=== PATIENT | female | born 1955 | race Caucasian/White ===

== ENCOUNTER 2020-01-20 13:01 | Emergency (ER) | payer OTHER ==
[~2020-01-20] VITALS: Ht 162.6 cm; Wt 117.9 kg
[2020-01-20] MEDS ORDERED: ONDANSETRON HCL INJ 2MG/ML 2ML 2 MG/ML VIAL IV STA (13:26)
[2020-01-20] MEDS ORDERED: HYDROCODONE/APAP 7.5MG-325MG 1 EA TAB PO ONE (13:30)
[2020-01-20] MEDS ORDERED: DEXAMETHASONE SOD PHOS 10 MG/1 ML VIAL IV ONE (13:30)
[2020-01-20 13:47] LABS: BASOPHILS % 0.4 % (0.0-1.0); EOSINOPHILS # (AUTO) 0.1 (0.0-0.4); EOSINOPHILS % 2.5 % (0.0-6.0); HEMOGLOBIN 13.2 g/dL (12.0-16.0); LYMPHOCYTES # (AUTO) 2.2 (1.0-3.2); LYMPHOCYTES % 38.9 % (18.0-39.1); MEAN CORPUSCULAR HEMOGLOBIN 29.3 pg (28-32); MEAN CORPUSCULAR HGB CONC 32.2 g/dL (31-35); MEAN CORPUSCULAR VOLUME 91.1 fL (81-99); MONOCYTES # (AUTO) 0.5 (0.2-0.8); MONOCYTES % 9.5 % (4.4-11.3); NEUTROPHILS # (AUTO) 2.7 (2.1-6.9); NEUTROPHILS % 48.5 % (38.7-80.0); PLATELET COUNT 203 x10e3/uL (140-360); RED CELL DISTRIBUTION WIDTH 13.2 % (11.7-14.4)
[2020-01-20 13:58] LABS: INR 0.91; PARTIAL THROMBOPLASTIN TIME 32.3 seconds (23.8-35.5); PROTHROMBIN TIME 12.7 seconds (11.9-14.5)
[2020-01-20 14:11] LABS: ALANINE AMINOTRANSFERASE 18 IU/L (0-55); ALBUMIN 3.5 g/dL (3.5-5.0); ALKALINE PHOSPHATASE 97 IU/L (40-150); ANION GAP 12.3 mmol/L (8-16); BLOOD UREA NITROGEN 17 mg/dL (7-26); BUN/CREATININE RATIO 21 (6-25); CALCIUM 8.9 mg/dL (8.4-10.2); CARBON DIOXIDE 25 mmol/L (22-29); CHLORIDE 110 mmol/L (98-107); CREATINE KINASE 48 IU/L (29-168); EST GLOMERULAR FILTRATION RATE > 60 ML/MIN (60-); GLUCOSE 95 mg/dL (74-118); POTASSIUM 4.3 mmol/L (3.5-5.1); SODIUM 143 mmol/L (136-145)
--- NOTE | 2020-01-20 14:27 | Diagnostic Imaging Report ---
EXAMINATION: CHEST SINGLE (NOT PORTABLE) INDICATION: Neck pain, arm numbness COMPARISON: None FINDINGS: LINES/TUBES:None LUNGS:The lungs are well-inflated. No focal consolidation or pulmonary edema. PLEURA:No pleural effusion or pneumothorax. MEDIASTINUM:The cardiomediastinal silhouette appears normal in size and shape. Atherosclerotic calcifications of the thoracic aorta. BONES/SOFT TISSUES:No acute osseous injury. ABDOMEN:No free air under the diaphragm. IMPRESSION: No focal pneumonia or pulmonary edema. Signed by: Severo Torres MD on 01/20/2020 2:24 PM
--- NOTE | 2020-01-20 14:29 | Diagnostic Imaging Report ---
EXAMINATION: CERVICAL SPINE 4 OR 5 VIEWS INDICATION: Neck pain COMPARISON: None FINDINGS: AP, lateral, oblique, odontoid images of the cervical spine were obtained. Alignment is anatomic. No acute fracture or dislocation. Mild multilevel degenerative changes with disc space narrowing and osteophyte formation. Prevertebral soft tissues are normal in thickness. IMPRESSION: No acute osseous injury. Multilevel degenerative changes. Signed by: Severo Torres MD on 01/20/2020 2:26 PM
--- NOTE | 2020-01-20 15:14 | Emergency Department Note ---
History of Present Illnes History of Present Illness Chief Complaint: General Medicine Complaints History of Present Illness This is a 64 year old female pt states left side neck pain onset 3 days ago. pain in arm itself and numbness complete to thumb and 2 fingers. pt denies chest pain or sob. no nausea. +radial pulse. cap refill <2 seconds. Historian: Patient, Family Member Arrival Mode: Car Vaccine Manager Required: No Onset (how long ago): day(s) (3) Location: NECK PAIN TO LEFT ARM Quality: PAIN/NUMBNESS Radiation: Reports extremity Severity: moderate Onset quality: gradual Timing of current episode: constant Progression: unchanged Chronicity: new Context: Denies recent illness Relieving factors: none Exacerbating factors: none Associated symptoms: Reports denies other symptoms Treatments prior to arrival: none Past Medical/Family History Physician Review I have reviewed the patient's past medical and family history. Any updates have been documented here. Past Medical History Recent Fever: No Clinical Suspicion of Infectio: No New/Unexplained Change in Ment: No Past Medical History: Hypertension, Hypothyroidism Other Medical History: morbid obesity Past Surgical History: Cholecysctectomy, Appendectomy, Hysterectomy Other Surgery: abd adhensions Social History Smoking Cessation: Former smoker Counseling Performed: No Alcohol Use: None Any Illegal Drug Use: No Physically hurt or threatened: No Family History Family history of heart diseas: No Other Any Pre-Existing Lines (PICC,: No Review of Systems Review of Systems Constitutional: Reports no symptoms EENTM: Reports no symptoms Cardiovascular: Reports no symptoms Respiratory: Reports no symptoms Gastrointestinal: Reports no symptoms Genitourinary: Reports no symptoms Musculoskeletal: Reports as per HPI, Reports neck pain Integumentary: Reports no symptoms Neurological: Reports no symptoms Psychological: Reports no symptoms Endocrine: Reports no symptoms Hematological/Lymphatic: Reports no symptoms Physical Exam Related Data Allergies: Coded Allergies: No Known Allergies (Unverified , 01/20/20) Triage Vital Signs Vital Signs Date Time Temp Pulse Resp B/P (MAP) Pulse Ox O2 Delivery O2 Flow Rate FiO2 01/20/20 13:19 97.5 76 18 176/81 99 Room Air Vital signs reviewed: Yes Physical Exam CONSTITUTIONAL Constitutional: Present well-developed, Present well-nourished HENT HENT: Present normocephalic, Present atraumatic, Present oropharynx clear/moist, Present nose normal HENT L/R: Present left ext ear normal, Present right ext ear normal EYES Eyes: Reports PERRL, Reports conjunctivae normal NECK Neck: Present ROM normal, Present supple, Present other (NEGATIVE SPURLING'S, GOOD ROM); Absent cervical adenopathy PULMONARY Pulmonary: Present effort normal, Present breath sounds normal CARDIOVASCULAR Cardiovascular: Present regular rhythm, Present heart sounds normal, Present capillary refill normal, Present normal rate GASTROINTESTINAL Abdominal: Present soft, Present nontender, Present bowel sounds normal GENITOURINARY Genitourinary: Present exam deferred SKIN Skin: Present warm, Present dry MUSCULOSKELETAL Musculoskeletal: Present ROM normal NEUROLOGICAL Neurological: Present alert, Present oriented x 3, Present no gross motor or sensory deficits, Present sensory deficit (SLIGHT DECREASED LIGHT TOUCH TO LEFT THUMB, INDEX, AND LONG FINGER, NO MOTOR DEFICITS, DTR'S NORMAL); Absent weakness PSYCHOLOGICAL Psychological: Present mood/affect normal, Present judgement normal Results Laboratory Result Diagram: 01/20/20 1323 01/20/20 1323 Laboratory Laboratory Tests Test 01/20/20 13:23 White Blood Count 5.60 x10e3/uL (4.8-10.8) Red Blood Count 4.50 x10e6/uL (3.6-5.1) Hemoglobin 13.2 g/dL (12.0-16.0) Hematocrit 41.0 % (34.2-44.1) Mean Corpuscular Volume 91.1 fL (81-99) Mean Corpuscular Hemoglobin 29.3 pg (28-32) Mean Corpuscular Hemoglobin Concent 32.2 g/dL (31-35) Red Cell Distribution Width 13.2 % (11.7-14.4) Platelet Count 203 x10e3/uL (140-360) Neutrophils (%) (Auto) 48.5 % (38.7-80.0) Lymphocytes (%) (Auto) 38.9 % (18.0-39.1) Monocytes (%) (Auto) 9.5 % (4.4-11.3) Eosinophils (%) (Auto) 2.5 % (0.0-6.0) Basophils (%) (Auto) 0.4 % (0.0-1.0) Neutrophils # (Auto) 2.7 (2.1-6.9) Lymphocytes # (Auto) 2.2 (1.0-3.2) Monocytes # (Auto) 0.5 (0.2-0.8) Eosinophils # (Auto) 0.1 (0.0-0.4) Basophils # (Auto) 0.0 (0.0-0.1) Absolute Immature Granulocyte (auto 0.01 x10e3/uL (0-0.1) Prothrombin Time 12.7 seconds (11.9-14.5) Prothromb Time International Ratio 0.91 Activated Partial Thromboplast Time 32.3 seconds (23.8-35.5) Sodium Level 143 mmol/L (136-145) Potassium Level 4.3 mmol/L (3.5-5.1) Chloride Level 110 mmol/L (98-107) Carbon Dioxide Level 25 mmol/L (22-29) Anion Gap 12.3 mmol/L (8-16) Blood Urea Nitrogen 17 mg/dL (7-26) Creatinine 0.80 mg/dL (0.57-1.11) Estimat Glomerular Filtration Rate > 60 ML/MIN (60-) BUN/Creatinine Ratio 21 (6-25) Glucose Level 95 mg/dL (74-118) Calcium Level 8.9 mg/dL (8.4-10.2) Total Bilirubin 0.3 mg/dL (0.2-1.2) Aspartate Amino Transf (AST/SGOT) 16 IU/L (5-34) Alanine Aminotransferase (ALT/SGPT) 18 IU/L (0-55) Alkaline Phosphatase 97 IU/L (40-150) Creatine Kinase 48 IU/L (29-168) Creatine Kinase MB 0.70 ng/mL (0-5.0) Troponin I 0.004 ng/mL (0-0.300) Total Protein 6.9 g/dL (6.5-8.1) Albumin 3.5 g/dL (3.5-5.0) Globulin 3.4 g/dL (2.3-3.5) Albumin/Globulin Ratio 1.0 (0.8-2.0) Lab results reviewed: Yes Imaging Imaging results reviewed: Yes Procedures 12 Lead ECG Interpretation ECG Interpretation : ECG: ECG 1 Vaccine Manager: Interpreted by ED physician Date: Jan 20, 2020 Time: 13:18 Rhythm: sinus rhythm Rate: normal (69) QRS axis: normal ST segments normal: Yes T waves normal: Yes Clinical Impression: normal ECG Assessment & Plan Medical Decision Making MDM LEFT ARM PAIN, NECK PAIN WITH LEFT THUMB/INDEX/LONG FINGER NUMBNESS - LIKELY CERVICAL RADICULOPATHY - CHECK CBC, CHEM, CARDIACS, ECG, CXR, CERVICAL SPINE XRAYS - R/O STEMI/NSTEMI, ELECTROLYTE ABNL, CERVICAL PATHOLOGY/FX/DJD. WILL GIVE IV DECADRON, PAIN MEDS Reassessment Reassessment DC WITH TRAMADOL, MEDROL DOSE PACK. F/U PCP, NEURO Assessment & Plan Final Impression: (1) Cervical radiculopathy (2) DJD (degenerative joint disease) Depart Disposition: HOME, SELF-CARE Last Vital Signs Date Time Temp Pulse Resp B/P (MAP) Pulse Ox O2 Delivery O2 Flow Rate FiO2 01/20/20 13:19 97.5 76 18 176/81 99 Room Air Medications in the ED Ondansetron HCl 4 mg ONCE STAT IV Last administered on 01/20/20 14:23; Admin Dose 4 MG; Start 01/20/20 at 13:26; Stop 01/20/20 at 13:56; Status DC Dexamethasone Sodium Phosphate 10 mg ONCE ONCE IV Last administered on 01/20/20at 14:23; Admin Dose 10 MG; Start 01/20/20 at 13:30; Stop 01/20/20 at 13:56; Status DC Acetaminophen/ Hydrocodone Bitart 1 ea NOW ONCE PO Last administered on 01/20/20at 14:23; Admin Dose 1 EA; Start 01/20/20 at 13:30; Stop 01/20/20 at 13:56; Status DC ELSA OVALLES MD Jan 20, 2020 15:14
--- OUTSIDE RECORDS SUMMARY | 2020-01-23 19:15 | XMS REPORT | Continuity of Care Document ---
Author Author [facility] t Organization [facility] Address [address] [place] [address] Phone Unavailable Care Team Providers Care Computer Numerical Control Grinder Name Role Phone MD NILO CHANDRA PCP Bello OVALLES Attphys Unavailable Payers Payer Name Policy Type Policy Number Effective Date Expiration Date Iraj Conway [id number] 2019 00:00:00 [facility] Problems Condition Name Condition Details Condition Category Status Onset Date Resolution Date Last Treatment Date Treating Clinician Comments Source Cervical radiculopathy Problem Active [facility] Osteoarthritis Problem Active [facility] Allergies, Adverse Reactions, Alerts Allergy Name Allergy Type Status Severity Reaction(s) Onset Date Inacti ve Date Treating Clinician Comments Source No Known Allergies DA Active U 2019-03-17 00:00:00 [facility] No Known Contrast Allergies DA Active U 2007-11-21 00:00: 00 [facility] No Known Drug Allergies DA Active U 2007-11-21 00:00:00 [facility] No Known Food Allergies DA Active U 2007-11-21 00:00:00 [facility] No Known Other Allergies DA Active U 2007-11-21 00:00:00 [facility] Social History Social Habit Start Date Stop Date Quantity Comments Source Sex Assigned At 1955 00:00:00 1955 00:00:00 Female [facility] Medications This patient has no known medications. Vital Signs Vital Name Observation Time Observation Value Comments Source Weight 2020-01-20 13:19:00 260 [lb_av] [facility] BMI (Body Mass Index) 2020-01-20 13:19:00 44.6 kg/m2 [facility] Procedures Procedure Date / Time Performed Performing Clinician Sour e X-ray of chest, single view 2020-01-20 00:00:00 [facility] Plan of Care Planned Activity Planned Date Details Comments Source Instructions Cervical Radiculopathy [facility] Encounters Start Date/Time End Date/Time Encounter Type Admission Type Att[facility] Facility Care Department Encounter ID Source 2020-01-20 13:25:00 2020-01-20 15:31:00 Departed Emergency Room 1 ELSA OVALLES [facility] [id number] [facility] Results Test Description Test Time Test Comments Results Result Comments Source CHEST SINGLE (NOT PORTABLE) 2020-01-20 14:24:00 [place] [address] Patient Name: RAQUEL WAKEFIELD MR #: [id number] : 1955 Age/Sex: 64/F Req #: [id number] Adm Physician: Ordered by: ELSA OVALLES MD Report #: [id number] Location: ER Room/Bed: Procedure: [id number] DX/CHEST SINGLE (NOT PORTABLE) Exam Date: 01/20/20 Exam Time: 1358 REPORT STATUS: Signed EXAMINATION: CHEST SINGLE (NOT PORTABLE) INDICATION: Neck pain, arm numbness COMPARISON: None FINDINGS: LINES/TUBES:None LUNGS:The lungs are well-inflated. No focal consolidation or pulmonary edema. PLEURA:No pleural effusion or pneumothorax. MEDIASTINUM:The cardiomediastinal silhouette appears normal in size and shape. Atherosclerotic calcifications of the thoracic aorta. BONES/SOFT TISSUES:No acute osseous injury. ABDOMEN:No free air under the diaphragm. IMPRESSION: No focal pneumonia or pulmonary edema. Signed by: Brijesh Caruso MD on 01/20/2020 2:24 PM Dictated By: BRIJESH CARUSO MD 23 Transcribed By: JEFERSON on 01/20/201423 COPY TO: ELSA OVALLES MD CERVICAL SPINE 4 OR 5 VIEWS 2020-01-20 14:24:00 [place] [address] Patient Name: RAQUEL WAKEFIELD MR #: [id number] : 1955 Age/Sex: 64/F Req #: [id number] Adm Physician: Ordered by: ELSA OVALLES MD Report #: [id number] Location: ER Room/Bed: Procedure: [id number] DX/CERVICAL SPINE 4 OR 5 VIEWS Exam Date: 01/20/20 Exam Time: 1358 REPORT STATUS: Signed EXAMINATION: CERVICAL SPINE 4 OR 5 VIEWS INDICATION: Neck pain COMPARISON: None FINDINGS: AP, lateral, oblique, odontoid images of the cervical spine were obtained. Alignment is anatomic. No acute fracture or dislocation. Mild mul tilevel degenerative changes with disc space narrowing and osteophyte formation. Prevertebral soft tissues are normal in thickness. IMPRESSION: No acute osseous injury. Multilevel degenerative changes. Signed by: Brijesh Caruso MD on 01/20/2020 2:26 PM Dictated By: BRIJESH CARUSO MD 1426 Transcribed By: JEFERSON on 01/20/20 1426 COPY TO: ELSA OVALLES MD Blood leukocytes automated count (number/volume) 2020-01-20 13:23:00 Test Item White Blood Count (test code = 6690-2) 5.60 4.8-10.8 [facility] count (number/volume)2020-01-20 13:23:00* Test Item Value Reference Range Interpretation Comments Red Blood Count (test code = 789-8) 4.50 3.6-5.1 [facility] hemoglobin measurement (moles/volume)2020-01-20 13:23:00* Test Item Value Reference Range Interpretation Comments Hemoglobin (test code = 74172-3) 13.2 12.0-16.0 [facility] CenterAutomated blood hematocrit (volume fraction)2020-01-20 13:23:00* Test Item Value Reference Range Interpretation Comments Hematocrit (test code = 4544-3) 41.0 34.2-44.1 [facility] CenterAutomated erythrocyte mean corpuscular mgkbbw1741-37-23 13:23:00* Test Item Value Reference Range Interpretation Comments Mean Corpuscular Volume (test code = 787-2) 91.1 81-99 [facility] CenterAutomated erythrocyte mean corpuscular hemoglobin (mass per erythrocyte)2020-01-20 13:23:00* Test Item Value Reference Range Interpretation Comments Mean Corpuscular Hemoglobin (test code = 785-6) 29.3 28-32 [facility] CenterAutomated erythrocyte mean corpuscular hemoglobin concentration measurement (mass/volume)2020-01-20 13:23:00* Test Item Value Reference Range Interpretation Comments Mean Corpuscular Hemoglobin Concent (test code = 786-4) 32.2 31-35 [facility] CenterRDW [id number]-[id number] 13:23:00* Test Item Value Reference Range Interpretation Comments Red Cell Distribution Width (test code = 76187-9) 13.2 11.7 -14.4 [facility] CenterAutomated blood platelet count (count/volume)2020-01-20 13:23:00* Test Item Value Reference Range Interpretation Comments Platelet Count (test code = 777-3) 203 140-360 [facility] CenterAutomated blood segmented neutrophil count as percentage of total mlxnxdqzfu6629-05-59 13:23:00* Test Item Value Reference Range Interpretation Comments Neutrophils (%) (Auto) (test code = 91020-8) 48.5 38.7-80.0 [facility] CenterAutomated blood lymphocyte count as percentage ot total sfhblfecox2830-87-71 13:23:00* Test Item Value Reference Range Interpretation Comments Lymphocytes (%) (Auto) (test code = 736-9) 38.9 18.0-39.1 [facility] CenterAutomated blood monocyte count as percentage of total evgzabnreo7298-20-99 13:23:00* Test Item Value Reference Range Interpretation Comments Monocytes (%) (Auto) (test code = 5905-5) 9.5 4.4-11.3 [facility] CenterAutomated blood eosinophil count as percentage of total fibranccvg8173-16-02 13:23:00* Test Item Value Reference Range Interpretation Comments Eosinophils (%) (Auto) (test code = 713-8) 2.5 0.0-6.0 [facility] CenterAutomated blood basophil count as percentage of total hxdrypuxgg0925-37-06 13:23:00* Test Item Value Reference Range Interpretation Comments Basophils (%) (Auto) (test code = 706-2) 0.4 0.0-1.0 [facility] CenterFluoroscopic procedure less than one hour zltoothi0505-44-13 13:23:00* Test Item Value Reference Range Interpretation Comments IM GRANULOCYTES % (test code = IM GRANULOCYTES %) 0.2 0.0- 1.0 [facility] CenterAutomated blood neutrophil count 2020-01-20 13:23:00* Test Item Value Reference Range Interpretation Comments Neutrophils # (Auto) (test code = 751-8) 2.7 2.1-6.9 [facility] CenterBlood lymphocytes count (number/volume) 2020-01-20 13:23:00* Test Item Value Reference Range Interpretation Comments Lymphocytes # (Auto) (test code = 34104-0) 2.2 1.0-3.2 [facility] CenterBlood monocytes automated count (number/volume)2020-01-20 13:23:00* Test Item Value Reference Range Interpretation Comments Monocytes # (Auto) (test code = 742-7) 0.5 0.2-0.8 [facility] CenterAutomated blood eosinophil count 2020-01-20 13:23:00* Test Item Value Reference Range Interpretation Comments Eosinophils # (Auto) (test code = 711-2) 0.1 0.0-0.4 [facility] CenterAutomated blood basophil count (count/volume)2020-01-20 13:23:00* Test Item Value Reference Range Interpretation Comments Basophils # (Auto) (test code = 704-7) 0.0 0.0-0.1 [facility] CenterFluoroscopic procedure less than one hour mwbsdbhs5846-66-81 13:23:00* Test Item Value Reference Range Interpretation Comments Absolute Immature Granulocyte (auto (saroj t code = Absolute Immature Granulocyte (auto) 0.01 0-0.1 [facility] CenterProthrombin time (PT) in platelet poor plasma by coagulation lazvz7930-88-10 13:23:00* Test Item Value Reference Range Interpretation Comments Prothrombin Time (test code = 5902-2) 12.7 11.9-14.5 [facility] CenterINR in Platelet poor plasma by Coagulation wgbgs0041-30-41 13:23:00* Test Item Value Reference Range Interpretation Comments Prothromb Time International Ratio (test code = 6301-6) 0.91 Oral Anticoagulant Therapy INR Values:1. Low Intensity Therapy 1.5 - 2.02 . Moderate Intensity Therapy 2.0 - 3.03. High Intensity Therapy(1) 2.5 - 3. 54. High Intensity Therapy(2) 3.0 - 4.05. Panic Value INR > 5.0 [facility] CenterActivated partial thromboplastin time (aPTT) in platelet poor plasma by coagulation nmvsh9381-89-26 13:23:00* Test Item Value Reference Range Interpretation Comments Activated Partial Thromboplast Time (test code = 64460-7) 32.3 23.8-35.5 [facility] plasma sodium measurement (moles/volume)2020-01-20 13:23:00* Test Item Value Reference Range Interpretation Comments Sodium Level (test code = 2951-2) 143 136-145 [facility] or plasma potassium measurement (moles/volume)2020-01-20 13:23:00* Test Item Value Reference Range Interpretation Comments Potassium Level (test code = 2823-3) 4.3 3.5-5.1 [facility] or plasma chloride measurement (moles/volume)2020-01-20 13:23:00* Test Item Value Reference Range Interpretation Comments Chloride Level (test code = 2075-0) 110 98-107 [facility] or plasma carbon dioxide, total measurement (moles/volume)2020-01-20 13:23:00* Test Item Value Reference Range Interpretation Comments Carbon Dioxide Level (test code = 2028-9) 25 22-29 [facility] or plasma anion pnu5630-08-56 13:23:00* Test Item Value Reference Range Interpretation Comments Anion Gap (test code = 16109-3) 12.3 8-16 [facility] or plasma urea nitrogen measurement (mass/volume)2020-01-20 13:23:00* Test Item Value Reference Range Interpretation Comments Blood Urea Nitrogen (test code = 3094-0) 17 7-26 [facility] or plasma creatinine measurement (mass/volume)2020-01-20 13:23:00* Test Item Value Reference Range Interpretation Comments Creatinine (test code = 2160-0) 0.80 0.57-1.11 [facility] or plasma urea nitrogen/creatinine mass wwwme9340-78-00 13:23:00* Test Item Value Reference Range Interpretation Comments BUN/Creatinine Ratio (test code = 3097-3) 21 6-25 [facility] CenterEstimated glomerular filtration rate (GFR) kcrviwrdtzxde6075-51-84 13:23:00* Test Item Value Reference Range Interpretation Comments Estimat Glomerular Filtration Rate (test code = 369943635) > 60 >60 Ranges were taken from the National Kidney Disease Education Program and the [facility] literature.Reference ranges:60 or greater: Lxpxbd77-31 ( for 3 consecutive months): Chronic kidney disease 15 or less: Kidney failureCook Children's Medical CenterGlucose yhdsplynzng3640-64-87 13:23:00* Test Item Value Reference Range Interpretation Comments Glucose Level (test code = TTF3301) 95 74-118 [facility] or plasma calcium measurement (mass/volume)2020-01-20 13:23:00* Test Item Value Reference Range Interpretation Comments Calcium Level (test code = 56149-0) 8.9 8.4-10.2 [facility] or plasma total bilirubin measurement (mass/volume)2020-01-20 13:23:00* Test Item Value Reference Range Interpretation Comments Total Bilirubin (test code = 1975-2) 0.3 0.2-1.2 [facility] CenterFluoroscopic procedure less than one hour izlemlpc4107-56-15 13:23:00* Test Item Value Reference Range Interpretation Comments Aspartate Amino Transf (AST/SGOT) (test code = Aspartate Amino Transf (AST/SGOT)) 16 5-34 [facility] or plasma alanine aminotransferase measurement (enzymatic activity/volume)2020-01-20 13:23:00* Test Item Value Reference Range Interpretation Comments Alanine Aminotransferase (ALT/SGPT) (test code = 1742-6) 18 0-55 [facility] Systemer[facility] or plasma protein measurement (mass/volume)2020-01-20 13:23:00* Test Item Value Reference Range Interpretation Comments Total Protein (test code = 2885-2) 6.9 6.5-8.1 [facility] or plasma albumin measurement (mass/volume)2020-01-20 13:23:00* Test Item Value Reference Range Interpretation Comments Albumin (test code = 1751-7) 3.5 3.5-5.0 [facility] CenterPlasma globulin measurement (mass/volume) 2020-01-20 13:23:00* Test Item Value Reference Range Interpretation Comments Globulin (test code = 94812-0) 3.4 2.3-3.5 [facility]er[facility] or plasma albumin/globulin mass xdiek7595-58-32 13:23:00* Test Item Value Reference Range Interpretation Comments Albumin/Globulin Ratio (test code = 1759-0) 1.0 0.8-2.0 [facility]er[facility] or plasma alkaline phosphatase measurement (enzymatic activity/volume)2020-01-20 13:23:00* Test Item Value Reference Range Interpretation Comments Alkaline Phosphatase (test code = 6768-6) 97 40-150 [facility]er[facility] or plasma creatine kinase measurement (enzymatic activity/volume)2020-01-20 13:23:00* Test Item Value Reference Range Interpretation Comments Creatine Kinase (test code = 2157-6) 48 29-168 [facility] Systemerum or plasma creatine kinase MB measurement (mass/volume)2020-01-20 13:23:00* Test Item Value Reference Range Interpretation Comments Creatine Kinase MB (test code = 33177-0) 0.70 0-5.0 [facility] CenterTroponin I measurement by highly sensitive enzyme edqcbczyjhm2478-56-83 13:23:00* Test Item Value Reference Range Interpretation Comments Troponin I (test code = 49181-3) 0.004 0-0.300 [facility]- CT ABD PELVIS W/[id number] 20:28:00 Name: RAQUEL WAKEFIELD [facility] : 1955 Age/S: 63 / F [address] [facility] [id number] Loc: [place] [address] Phys: Gonzalez Angelo MD Acct: [id number] Di s Date: Status: REG ER PHONE #: [phone] Exam Date: 03/17/20192015 FAX #: Reason: LUQ ttp EXAMS: CPT CODE: [id number] CT ABD PELVIS W/CONT 74422 EXAM: CT of the abdomen a nd pelvis with contrast; INFORMATION: Left upper quadrant pain; TECHNIQUE: CT dose reduction protocol; 5 mm cut s were obtained through the abdomen and pelvis during and after intravenou s infusion of contrast material. FINDINGS: Liver, spleen and pancreas are of normal size and shape; they show homogeneous enhancement without focal lesions. Status post cholecystectomy; no biliary dilatation . Adrenal glands and kidneys are unremarkable; no evidence of adenop athy; No evidence of appendicitis or other acute bowel abnormalities. No pelvic mass lesions. No abnormal fluid collections. Extensive c alcified plaques in the abdominal aorta and the iliofemoral arteries. Scans through the lung bases are clear. IMPRESSION: No evidence of acute abdominal or pelvic abnormalities. at 2027 Reported and si gned by: Saad Sauceda M.D. CC: Sara Angelo MD Technologist:Elizabeth Thompson RT(R); ÁNGEL Rojo CTDI: D LP: Trnscb Date/Time: 03/17/2019 (2027) [email or web address] Orig Print D/T: S: 03/17/2019 (2030) PAGE 1 Signed R eport URINALYSIS [id number] 14:20:00* Test Item Value Reference Range Interpretation Comments UA COLOR (test code = COLU) Light-Yellow YELLOW UA APPEARANCE (test code = APPU) CLEAR CLEAR UA GLUCOSE DIPSTICK (test code = DGLUU) NEGATIVE mg/dL NEGATIVE UA BILIRUBIN DIPSTICK (test code = BILU) NEGATIVE mg/dL NEGATIVE UA KETONE DIPSTICK (test code = KETU) NEGATIVE mg/dL NEGATIVE UA SPECIFIC GRAVITY (test code = SGU) 1.008 1.001-1.035 UA BLOOD DIPSTICK (test code = TERRY) Negative mg/dL NEGATIVE UA PH DIPSTICK (test code = JULIUS) 6.0 5.0-8.0 UA PROTEIN DIPSTICK (test code = PROU) NEGATIVE mg/dL NEGATIVE UA UROBILINIOGEN DIPSTICK (test code = URO) Normal mg/dL NEGATIVE UA NITRITE DIPSTICK (test code = MINGO) NEGATIVE NEGATIVE UA LEUKOCYTE ESTERASE W REFLEX (test code = LEUUR) NEGATIVE Lakesha/uL NEGATIVE UA WBC (test code = WBCU) 0-5 per HPF 0-5 UA RBC (test code = RBCU) 0-2 #/HPF 0-5 UA EPITHELIAL CELLS (test code = EPIU) FEW per HPF FEW UA BACTERIA (test code = BACU) FEW #/HPF NONE Urine Source? Clean Catch- XR CHEST 1 [id number] 13:59:00 FAX: Sara Blanco [phone] [place]: St: REG Name: RAQUEL BRAND [facility] : [birth year] Age/S: 63/F [address] [facility] Unit #: [id number] Loc: [place] [address] Phys: Sara Angelo Acct: [id number] Dis Date: Status: REG ER PHONE #: [phone] Exam Date: 03/17/2019 1342 FAX #: [phone] Reason: Abdominal Pain EXAMS: CPT CODE: [id number] XR CHEST 1 V 04414 REASON FOR EXAM: Abdominal Pain Exam Order Date: 03/17/2019 12:51 PM Ordering M .D.: Sara Angelo MD PROCEDURE: - XR CHEST 1 V COMPARISON: None FINDINGS: The lungs are clear. There i s no pleural effusion or pneumothorax. Pulmonary vascularity is within nor mal limits. Cardiomediastinal silhouette is normal in size for lawrence hnique. The mediastinal contours are within normal limits. D egenerative changes are present in the spine. The visualized upper abdomen is within normal limits. IMPRESSION: No acute cardiopulmonary process. at 1359 Reported and signed by: Saulo Rolon MD CC: Sara Angelo MD Technologist: Shameka Miles) [facility] Date/Time/By: 03/17/2019 (8477) : By: [email or web address] Orig Print D/T: S: (0984) PAGE 1 Signed Repo rt BASIC METABOLIC [id number] 13:41:00* Test Item Value Reference Range Interpretation Comments SODIUM (test code = NA) 141 mmol/L 136-145 N POTASSIUM (test code = K) 3.8 mmol/L 3.5-5.1 N CHLORIDE (test code = CL) 110.0 mmol/L 98-107 H CARBON DIOXIDE (test code = CO2) 24.0 mmol/L 21-32 N ANION GAP (test code = GAP) 10.8 10-20 N GLUCOSE (test code = GLU) 119 mg/dL 74-106 H BLOOD UREA NITROGEN (test code = BUN) 11 mg/dL 7-18 N GLOMERULAR FILTRATION RATE (test code = GFR) > 60 mL/min >=60 Estimated GFR by using Modified MDRD formula.Chronic kidney disease is defined as either kidney damageor GFR <60 mL/min/1.73 m2 for >3 months. CREATININE (test code = CREAT) 0.90 mg/dL 0.55-1.02 N Note change in reference range due to change in reagent. BUN/CREATININE RATIO (test code = BUN/CREA) 12.2 10-20 N CALCIUM (test code = CA) 8.9 mg/dL 8.5-10.1 N HEPATIC FUNCTION [id number] 13:41:00* Test Item Value Reference Range Interpretation Comments TOTAL PROTEIN (test code = PROT) 7.0 gram/dL 6.4-8.2 N ALBUMIN (test code = ALB) 3.6 g/dL 3.4-5.0 N GLOBULIN (test code = GLOB) 3.4 gram/dL 2.7-4.2 N ALBUMIN/GLOBULIN RATIO (test code = A/G) 1.1 0.75-1.50 N BILIRUBIN TOTAL (test code = BILT) 0.50 mg/dL 0.0-1.0 N BILIRUBIN DIRECT (test code = BILD) 0.09 mg/dL 0.0-0.20 N SGOT/AST (test code = AST) 18 IUnit/L 15-37 N SGPT/ALT (test code = ALT) 28 IUnit/L 12-78 N ALKALINE PHOSPHATASE TOTAL (test code = ALKP) 118 IUnit/L 45-117 H Note change in reference range due to change in reagent. [id number] 13:41:00* Test Item Value Reference Range Interpretation Comments LIPASE (test code = LIP) 60 U/L 73.0-393.0 L [id number] 13:41:00* Test Item Value Reference Range Interpretation Comments TROPONIN-I (test code = TROPI) <0.015 ng/mL 0-0.045 N BASIC METABOLIC [id number] 13:31:00* Test Item Value Reference Range Interpretation Comments SODIUM (test code = NA) 141 mmol/L 136-145 N POTASSIUM (test code = K) 3.8 mmol/L 3.5-5.1 N CHLORIDE (test code = CL) 110.0 mmol/L 98-107 H CARBON DIOXIDE (test code = CO2) mmol/L 21-32 ANION GAP (test code = GAP) 10-20 GLUCOSE (test code = GLU) mg/dL 74-106 BLOOD UREA NITROGEN (test code = BUN) mg/dL 7-18 GLOMERULAR FILTRATION RATE (test code = GFR) mL/min >=60 CREATININE (test code = CREAT) mg/dL 0.55-1.02 BUN/CREATININE RATIO (test code = BUN/CREA) 10-20 CALCIUM (test code = CA) mg/dL 8.5-10.1 HEPATIC FUNCTION [id number] 13:31:00* Test Item Value Reference Range Interpretation Comments TOTAL PROTEIN (test code = PROT) gram/dL 6.4-8.2 ALBUMIN (test code = ALB) g/dL 3.4-5.0 GLOBULIN (test code = GLOB) gram/dL 2.7-4.2 ALBUMIN/GLOBULIN RATIO (test code = A/G) 0.75-1.50 BILIRUBIN TOTAL (test code = BILT) mg/dL 0.0-1.0 BILIRUBIN DIRECT (test code = BILD) mg/dL 0.0-0.20 SGOT/AST (test code = AST) IUnit/L 15-37 SGPT/ALT (test code = ALT) IUnit/L 12-78 ALKALINE PHOSPHATASE TOTAL (test code = ALKP) IUnit/L 45-117 [id number] 13:31:00* Test Item Value Reference Range Interpretation Comments LIPASE (test code = LIP) U/L 73.0-393.0 [id number] 13:31:00* Test Item Value Reference Range Interpretation Comments TROPONIN-I (test code = TROPI) ng/mL 0-0.045 CBC W/O [id number] 13:21:00* Test Item Value Reference Range Interpretation Comments WHITE BLOOD CELL (test code = WBC) 5.9 K/mm3 4.5-12.5 N RED BLOOD CELL (test code = RBC) 4.57 mill/mm3 3.7-5.2 N HEMOGLOBIN (test code = HGB) 13.3 gram/dL 11.5-15.5 N HEMATOCRIT (test code = HCT) 41.1 % 36.0-46.0 N MEAN CELL VOLUME (test code = MCV) 89.9 fL 80-98 N MEAN CELL HGB (test code = MCH) 29.1 picogram 27.0-33.0 N MEAN CELL HGB CONCETRATION (test code = MCHC) 32.4 gram/dL 33.0-36. 0 L RED CELL DISTRIBUTION WIDTH (test code = RDW) 13.1 % 11.6-16. 2 N PLATELET COUNT (test code = PLT) 180 K/mm3 150-450 N MEAN PLATELET VOLUME (test code = MPV) 10.7 fL 6.7-11.0 N CBC W/O [id number] 13:17:00* Test Item Value Reference Range Interpretation Comments WHITE BLOOD CELL (test code = WBC) K/mm3 4.5-12.5 RED BLOOD CELL (test code = RBC) mill/mm3 3.7-5.2 HEMOGLOBIN (test code = HGB) 13.3 gram/dL 11.5-15.5 N HEMATOCRIT (test code = HCT) 41.1 % 36.0-46.0 N MEAN CELL VOLUME (test code = MCV) fL 80-98 MEAN CELL HGB (test code = MCH) picogram 27.0-33.0 MEAN CELL HGB CONCETRATION (test code = MCHC) gram/dL 33.0-36. 0 RED CELL DISTRIBUTION WIDTH (test code = RDW) % 11.6-16. 2 PLATELET COUNT (test code = PLT) K/mm3 150-450 MEAN PLATELET VOLUME (test code = MPV) fL 6.7-11.0
== END 2020-01-20 15:31 | disposition home or self-care (01) ==
LOC: ER 13:25
DX: M54.12 Radiculopathy, cervical region (principal); M47.892 Other spondylosis, cervical region
CPT/HCPCS: 36415; 71045; 72050; 80053; 82550; 82553; 84484; 85025; 85610; 85730; 93005; 99284; J2405

== ENCOUNTER → 2024-05-14 | Outpatient (REF) | payer MEDICARE | LOC: US 12:37 | PROVIDERS: ATTEND Nurse Practitioner Primary Care | DX: M75.22 Bicipital tendinitis, left shoulder (principal) | CPT/HCPCS: 76882 ==

== ENCOUNTER 2024-05-21 23:27 | Inpatient (IN) | payer MEDICARE ==
[~2024-05-21] VITALS: Ht 162.6 cm; Wt 117.9 kg
[2024-05-21 23:50] LABS: BASOPHILS % 0.6 % (0.0-1.0); EOSINOPHILS # (AUTO) 0.2 (0.0-0.4); EOSINOPHILS % 3.5 % (0.0-6.0); HEMATOCRIT 44.1 % (34.2-44.1); HEMOGLOBIN 13.8 g/dL (12.0-16.0); LYMPHOCYTES # (AUTO) 2.3 (1.0-3.2); LYMPHOCYTES % 32.9 % (18.0-39.1); MEAN CORPUSCULAR HEMOGLOBIN 29.5 pg (28-32); MEAN CORPUSCULAR HGB CONC 31.3 g/dL (31-35); MEAN CORPUSCULAR VOLUME 94.2 fL (81-99); MONOCYTES # (AUTO) 0.8 (0.2-0.8); MONOCYTES % 11.1 % (4.4-11.3); NEUTROPHILS # (AUTO) 3.6 (2.1-6.9); NEUTROPHILS % 51.8 % (38.7-80.0); PLATELET COUNT 187 x10e3/uL (140-360); RED BLOOD COUNT 4.68 x10e6/uL (3.6-5.1); RED CELL DISTRIBUTION WIDTH 13.3 % (11.7-14.4); WHITE BLOOD COUNT 6.91 x10e3/uL (4.8-10.8)
[2024-05-22] VITALS (38 sets, daily range): BP systolic 114–182; BP diastolic 63–98; PULSE 77–118; RESP 14–24; TEMP 98–100; O2SAT 92–99
[2024-05-22 00:23] LABS: ANION GAP 16.1 mmol/L (8-16); BILIRUBIN,TOTAL 0.4 mg/dL (0.2-1.2); CREATININE, SERUM 1.41 mg/dL (0.57-1.11); POTASSIUM 4.1 mmol/L (3.5-5.1); TOTAL PROTEIN 7.9 g/dL (6.5-8.1)
[2024-05-22 00:29] LABS: TROPONIN I 0.007 ng/mL (0-0.300)
[2024-05-22 00:36] LABS: STREPTOCOCCUS GRP A ANTIGEN NEGATIVE (NEGATIVE)
[2024-05-22 00:45] LABS: CORONAVIRUS COVID-19 AG NEGATIVE (NEGATIVE); INFLUENZA A AG NEGATIVE (NEGATIVE); INFLUENZA B AG NEGATIVE (NEGATIVE)
[2024-05-22] MEDS ORDERED: VENTOLIN HFA18 GM INH (01:05)
[2024-05-22] MEDS ORDERED: PREDNISONE20 MG PO (01:05)
[2024-05-22] MEDS ORDERED: AZITHROMYCIN250 MG PO (01:05)
[2024-05-22] MEDS: HYDRALAZINE HCL 20 MG/ML VIAL IV STA ×2 (01:22→02:20)
[2024-05-22] MEDS ORDERED: LABETALOL HCL 5 MG/ML 20ML VIAL IV STA (02:21)
[2024-05-22] MEDS ORDERED: ACETAMINOPHEN 325 MG TAB PO STA (02:24)
[2024-05-22] MEDS: ACETAMINOPHEN 325 MG TAB PO ONE (02:55)
[2024-05-22] MEDS: IBUPROFEN 600 MG TAB PO STA (02:56)
[2024-05-22] MEDS ORDERED: SODIUM CHLORIDE 0.9% 1000ML 1,000 ML ONE (03:01)
[2024-05-22] MEDS: SODIUM CHLORIDE 0.9% 1000ML 1,000 ML IV STA (03:03)
[2024-05-22] MEDS ORDERED: NICARDIPINE 20MG/200ML PREMIX 200 ML ONE (03:31)
[2024-05-22] MEDS: NICARDIPINE 20MG/200ML PREMIX 200 ML IV SCH (03:36)
[2024-05-22] MEDS ORDERED: AZITHROMYCIN 250 MG TAB PO SCH (04:15)
[2024-05-22] MEDS ORDERED: ACETAMINOPHEN 325 MG TAB PO PRN (06:30)
[2024-05-22] MEDS: LEVOTHYROXINE SODIUM 75 MCG TAB PO SCH (07:48)
[2024-05-22 07:51] LABS: TROPONIN I 0.04 ng/mL (0-0.300)
[2024-05-22] MEDS: MONTELUKAST SODIUM 10 MG TAB PO SCH (08:37)
[2024-05-22] MEDS: OMEPRAZOLE 20 MG CAP PO SCH (08:37)
[2024-05-22] MEDS: AZITHROMYCIN 250 MG TAB PO SCH (08:38)
[2024-05-22] MEDS: CARVEDILOL 12.5 MG TAB PO SCH (08:42)
[2024-05-22] MEDS: LOSARTAN POTASSIUM 100 MG TAB PO SCH (08:44)
[2024-05-22] MEDS: FLUTICASONE PROPIONATE NASAL SPRAY NS SCH (16:54)
[2024-05-22] MEDS: BENZONATATE 100 MG CAP PO PRN (19:57)
[2024-05-23] VITALS (14 sets, daily range): BP systolic 117–155; BP diastolic 61–87; PULSE 69–95; RESP 12–22; TEMP 97.4–98.4; O2SAT 89–98
[2024-05-23] MEDS ORDERED: BENZONATATE 100 MG CAP PO PRN
[2024-05-23] MEDS: ONDANSETRON HCL INJ 2MG/ML 2ML 2 MG/ML VIAL IV PRN (03:34)
[2024-05-23] MEDS: Morphine 4mg INJECTION 4 MG/ML INJ IV PRN (03:34)
[2024-05-23 06:27] LABS: BASOPHILS % 0.6 % (0.0-1.0); EOSINOPHILS # (AUTO) 0.3 (0.0-0.4); EOSINOPHILS % 5.1 % (0.0-6.0); HEMATOCRIT 38.7 % (34.2-44.1); HEMOGLOBIN 12.5 g/dL (12.0-16.0); LYMPHOCYTES # (AUTO) 1.9 (1.0-3.2); LYMPHOCYTES % 37.9 % (18.0-39.1); MEAN CORPUSCULAR HEMOGLOBIN 29.4 pg (28-32); MEAN CORPUSCULAR HGB CONC 32.3 g/dL (31-35); MEAN CORPUSCULAR VOLUME 91.1 fL (81-99); MONOCYTES # (AUTO) 0.5 (0.2-0.8); MONOCYTES % 9.5 % (4.4-11.3); NEUTROPHILS # (AUTO) 2.4 (2.1-6.9); NEUTROPHILS % 46.7 % (38.7-80.0); PLATELET COUNT 171 x10e3/uL (140-360); RED BLOOD COUNT 4.25 x10e6/uL (3.6-5.1); RED CELL DISTRIBUTION WIDTH 13.5 % (11.7-14.4); WHITE BLOOD COUNT 5.07 x10e3/uL (4.8-10.8)
[2024-05-23 06:49] LABS: ALBUMIN 3.2 g/dL (3.5-5.0); ALBUMIN/GLOBULIN RATIO 1.1 (0.8-2.0); ANION GAP 13.6 mmol/L (8-16); BILIRUBIN,TOTAL 0.5 mg/dL (0.2-1.2); CALCIUM 9.5 mg/dL (8.4-10.2); CREATININE, SERUM 0.92 mg/dL (0.57-1.11); POTASSIUM 3.6 mmol/L (3.5-5.1); TOTAL PROTEIN 6.1 g/dL (6.5-8.1)
[2024-05-23] MEDS: ALBUTEROL 90 MCG/ACT INHALER INH PRN (15:07)
[2024-05-24] VITALS: BP 134/70; PULSE 75; RESP 18; TEMP 97.8; O2SAT 100
[2024-05-24 04:00] VITALS: BP 131/79; PULSE 78; RESP 18; TEMP 98.4; O2SAT 97
[2024-05-24 05:40] LABS: BASOPHILS % 0.5 % (0.0-1.0); EOSINOPHILS # (AUTO) 0.3 (0.0-0.4); EOSINOPHILS % 5.3 % (0.0-6.0); HEMATOCRIT 38.4 % (34.2-44.1); HEMOGLOBIN 12.2 g/dL (12.0-16.0); LYMPHOCYTES # (AUTO) 2.3 (1.0-3.2); LYMPHOCYTES % 41.5 % (18.0-39.1); MEAN CORPUSCULAR HGB CONC 31.8 g/dL (31-35); MEAN CORPUSCULAR VOLUME 94.6 fL (81-99); MONOCYTES # (AUTO) 0.5 (0.2-0.8); NEUTROPHILS # (AUTO) 2.5 (2.1-6.9); NEUTROPHILS % 44.5 % (38.7-80.0); PLATELET COUNT 170 x10e3/uL (140-360); RED BLOOD COUNT 4.06 x10e6/uL (3.6-5.1); RED CELL DISTRIBUTION WIDTH 13.4 % (11.7-14.4); WHITE BLOOD COUNT 5.62 x10e3/uL (4.8-10.8)
[2024-05-24 06:11] LABS: ALBUMIN 3.2 g/dL (3.5-5.0); BILIRUBIN,TOTAL 0.4 mg/dL (0.2-1.2); CALCIUM 9.4 mg/dL (8.4-10.2); CREATININE, SERUM 1.07 mg/dL (0.57-1.11); TOTAL PROTEIN 6.3 g/dL (6.5-8.1)
[2024-05-24 06:40] VITALS: PULSE 97; RESP 16; O2SAT 97
[2024-05-24 08:19] VITALS: BP 126/80; PULSE 73; RESP 14; TEMP 97.6; O2SAT 100
[2024-05-24 08:45] VITALS: BP 126/80; PULSE 73; RESP 14; TEMP 97.6; O2SAT 100
[2024-05-24 09:48] VITALS: BP 126/80; PULSE 73
== END 2024-05-24 11:10 | disposition home or self-care (01) | DRG 305 ==
LOC: ER 23:31 → ERHOLD 05-22 03:31 → ICU 05-22 04:10 → MED/SURG3 05-23 09:00
PROVIDERS: ADMIT Internal Medicine; ATTEND Internal Medicine
DX: I16.0 Hypertensive urgency (principal); I16.1 Hypertensive emergency; Z68.41 Body mass index [BMI] 40.0-44.9, adult; E66.01 Morbid (severe) obesity due to excess calories; B96.89 Other specified bacterial agents as the cause of diseases classified elsewhere; I35.0 Nonrheumatic aortic (valve) stenosis; I12.9 Hypertensive chronic kidney disease with stage 1 through stage 4 chronic kidney disease, or unspecified chronic kidney disease; N18.32 Chronic kidney disease, stage 3b; J01.90 Acute sinusitis, unspecified; E03.9 Hypothyroidism, unspecified; K21.9 Gastro-esophageal reflux disease without esophagitis; Z11.52 Encounter for screening for COVID-19; T46.5X6A Underdosing of other antihypertensive drugs, initial encounter; Z91.128 Patient's intentional underdosing of medication regimen for other reason; Z79.52 Long term (current) use of systemic steroids; Z90.49 Acquired absence of other specified parts of digestive tract; Z90.710 Acquired absence of both cervix and uterus; Z82.49 Family history of ischemic heart disease and other diseases of the circulatory system
CPT/HCPCS: 36415; 71045; 80053; 82550; 83518; 83690; 83735; 83880; 84484; 85025; 87070; 93005; 93306; 94799; 99284; J0360; J2270; J2405; J7030